=== PATIENT | female | born 1950 | race Caucasian/White ===

== ENCOUNTER → 2023-11-11 | Outpatient (CLI) | payer MEDICARE, SELFPAY ==
--- NOTE | 2023-11-11 07:49 | CT_ITS ---
STUDY: CT ABDOMEN WITHOUT CONTRAST REASON FOR EXAM: Female, 73 years old. Epigastric hernia. Prior hernia repair. RADIATION DOSAGE (If Supplied By Facility): CTDIvol = ( 15.95 ) mGy, DLP = ( 497.88 ) mGycm TECHNIQUE: Transaxial images were obtained without intravenous contrast, and oral contrast. Sagittal and coronal images were reconstructed. Individualized dose optimization techniques were used for this CT. COMPARISON: None. FINDINGS: There is a 7.6 mm densely calcified nodule in the right breast in keeping with a calcified fibroadenoma. The visualized lung bases are unremarkable. Coronary artery calcification. Normal liver. The gallbladder is contracted. Normal spleen. Normal pancreas. Normal bilateral adrenal glands. Normal right kidney. Normal left kidney. There is a small hiatal hernia. Normal small intestine. Normal colon. There is non-visualization of the appendix. There is diffuse atherosclerotic calcification of the abdominal aorta and its major visceral branches, without a demonstrated aneurysm. Normal inferior vena cava. Normal retroperitoneum. There is a small upper anterior abdominal wall hernia containing fat. The neck of the hernia sac measures 1.5 cm. There are diffuse degenerative changes of the visualized lumbar spine. CT/Abdomen without IV Contrast IMPRESSION: Small upper anterior abdominal wall hernia containing fat. The neck of the hernia measures 1.5 cm. Status post cholecystectomy. Electronically Signed: Jason Walker MD at 10:54 EDT ,
== END | disposition home or self-care (01) ==
LOC: CT 07:48
PROVIDERS: PCP Family Medicine; Referring Provider Surgery; Visit Provider Surgery
DX: K43.9 Ventral hernia without obstruction or gangrene (principal)
CPT/HCPCS: 74150

== ENCOUNTER 2023-12-14 08:54 | Day surgery (SDC) | payer MEDICARE, SELFPAY ==
--- NOTE | 2023-12-01 10:40 | EKG12_ITS ---
Test Reason : PRE OP Blood Pressure : / mmHG Vent. Rate : 070 BPM Atrial Rate : 070 BPM P-R Int : 188 ms QRS Dur : 090 ms QT Int : 408 ms P-R-T Axes : 084 -04 -01 degrees QTc Int : 440 ms Normal sinus rhythm Nonspecific ST abnormality Abnormal ECG Confirmed by Javed Rudd ([id number]), school photograph editor YOANA DANG ([id number]) on 12/02/2023 5:48:01 AM Referred By: Gina Almonte Confirmed By:Javed Rudd
[2023-12-01 11:27] LABS: Partial Thromboplast Time 29.9 Seconds (24.1-36.2)
[2023-12-14] VITALS (8 sets, daily range): BP systolic 149–171; BP diastolic 60–79; PULSE 81–100; RESP 16–18; TEMP 36.4–36.5; O2SAT 92–98; BMI 31.1
--- NOTE | 2023-12-14 09:03 | HP.PCM_ITS ---
History and Physical Date of Admission: 12/14/23 Date of Service: 11/25/23 MR#: [id number] Acct: [id number] Name: GEETHA MARTINEZ Rep #: [id number] : 1950 Provider: Dr. Gina Almonte MD Age/Sex: 73/F Location: [facility] Status: Signed with Addenda Signed Intake Vital Signs 10/27/2407:52 11/24/2412:03 11/24/2412:25 Height 5 ft 6 in 5 ft 6 in Weight: 193 lb 8 oz 193 lb BMI 31.2 31.1 BP 159/83 H 179/80 H 166/78 H Blood Pressure Location Rt brachial Rt brachial Lt brachial Position Sitting Sitting Sitting Respiration 18 18 Pulse 70 75 Pulse Source Monitor Monitor Temp 97.6 F L 97.3 F L Temp Source Temporal Temporal Pulse Oximetry (%) 96 100 Oxygen Delivery Method room air room air Intake Visit Reasons: DISCUSS HERNIA SURGERY Chief Complaint: ventral hernia surgery Is patient in pain?: No Allergies cetirizine Allergy (Verified 11/25/23 13:04) Rash Medications amlodipine 5 mg tablet mg PO 10/27/23 [History Confirmed 11/25/23] carbamazepine 200 mg tablet mg PO 10/27/23 [History Confirmed 11/25/23] ipratropium bromide 21 mcg (0.03 %) nasal spray intranasal 10/27/23 [History Confirmed 11/25/23] levetiracetam 500 mg tablet mg PO 10/27/23 [History Confirmed 11/25/23] omeprazole 40 mg capsule,delayed release mg PO 10/27/23 [History Confirmed 11/25/23] simvastatin 40 mg tablet mg PO 10/27/23 [History Confirmed 11/25/23] sucralfate 1 gram tablet PO 10/27/23 [History Confirmed 11/25/23] [facility] Medical History Fibroid tumor Surgical History History of appendectomy History of right shoulder replacement History of tonsillectomy Hx of cholecystectomy Status post right hip replacement Family History Aunt Breast cancerMother Diabetes Social History Smoking Status: Never smoker alcohol intake: never substance use type: does not use HPI HPI HPI: 73-year-old female presents to discuss CAT scan results. CAT scan did show an epigastric hernia that previous incision site. Patient still denies any pain at the site just notices a bulge. Patient is interested in having this hernia repa ired. ROS General General: No weight change, appetite, fatigue, colon cancer, breast cancer or weakness HEENT HEENT: No difficulty swallowing, eye injury, eye surgery, swollen glands or hoarseness Endo Endocrine: No thyroid disease, diabetes mellitus, thyroid cancer, Hair loss, heat intolerance or cold intolerance Skin Skin: No rash or changing moles Musc Musculoskeletal: No back problems, arthritis, rheumatoid arthritis, gout or joint pain Cardio Cardiovascular: No murmur, pacemaker, heart disease, atrial fibrillation, high blood pressure, heart attack, heart stent, palpitations, shortness of breat with exertion or chest pain Psych Psychiatric: No depression, anxiety or hearing voices Resp Respiratory: No shortness of breath, No sleep apnea, No cough, No COPD, No asthma, No emphysema and No wheezing Gastro Gastrointestinal: No abdominal pain, No nausea or vomiting, No diarrhea, No constipation, No blood in stool, Yes acid reflux, No hemorrhoids, No ulcers, No gallbladder problem and No black,tarry stools Ash Hematologic: No blood thinners, No blood disorders, No bleeding, No anemia and No blood clots Neuro Neurologic: No numbness, No tingling and No weakness Exam Const General: cooperative, healthy appearing, comfortable and no acute distress [facility] Head: normocephalic and atraumatic Neck Neck: supple Resp Effort & Inspection: normal respiratory effort Cardio Rate: regular rate GI Inspection: non-distended Palpation: soft, hernia (Epigastric/incisional/incarcerated about 3 cm of tissue felt on exam, nonte) and nontender Skin General: no rashes or lesions noted Neuro General: CN's II-XI intact bilaterally Extrem General: normal to inspection Psych Mental Status: mental status grossly normal Attitude: cooperative Assessment and Plan Assessment and Plan (1) Incisional hernia, incarcerated: Status: Acute Plan Plan to do open incarcerated incisional hernia repair with mesh. Reviewed the procedure with the patient including the risks, including but not limited to infection, bleeding, injury to other organs (i.e. small bowel, colon), and recurrence. All questions were answered. Gina Almonte M.D. Pager: [phone] [facility] [address] [place] [address] [address] [place] [address] Office: [phone] Coding Level of Care Code Off vis,est,level 3 Diagnoses Incisional hernia, incarcerated K43.0 11/26/23 1259 <Electronically signed by Gina Almonte MD> Date Gina Almonte MD
[2023-12-14] MEDS: Lactated Ringers 1,000 ML 15 ML IV (09:24)
[2023-12-14] MEDS: Clindamycin 900 MG/50 ML BAG 75 MG IV (10:25)
[2023-12-14] MEDS: Bupivacaine Mpf 0.5% 30 ML VIAL (11:01)
--- NOTE | 2023-12-14 11:02 | PCM.OPRPT ---
Report of Operation Date of Procedure: 12/14/23 Pre-Operative Diagnosis: Incarcerated incisional hernia Post-Operative Diagnosis: Same Surgery/Procedure Performed:: Open incarcerated incisional hernia repair with mesh Surgeon: Gina Almonte sole conforming machine operator: Erika Alberts Type of Anesthesia: General/Supplemental Anesthesiologist: Jesse Tavera Special Medications: Clindamycin 900 mg IV x 1 Specimen's removed: None Estimated Blood Loss (mL): < 10 cc Description of Procedure: Patient was brought into the room placed supine on the operating table. Correct patient, procedure, site, positioning, special, was verified prior to procedure. General anesthesia was induced. The abdomen was prepped draped in usual sterile fashion. A vertical midline incision was made with a 15 blade scalpel overlying the incisional hernia.. This was deepened with electrocautery. The fascia around the hernia defect was cleared and abdominal contents reduced. The hernia defect measured 1.2 cm x 1.[address] hernia patch 4.3 cm was selected. This was secured superior/inferiorly at its tails with 0 Prolene horizontal mattress suture. The hernia defect was closed with a [id number] 0 Prolene. The wound was irrigated with saline. Hemostasis was assured. The incision was closed with 3-0 Vicryl subdermal interrupted sutures and the skin was closed with interrupted 4-0 Monocryl sutures. Steri-Strips and OpSite were placed over the incision. Patient was extubated. Patient tolerated procedure well and was taken to the postanesthesia care unit in stable condition. Grafts/Implants Used: Ventralex ST hernia patch 4.3 cm LOT [id number] [id number] Complications none
--- NOTE | 2023-12-14 11:06 | DCINST_ITS ---
Discharge Instructions Diet Discharge Diet: Light diet - advance as tolerated Activity Discharge Activity: May Not Drive (while taking narcotic pain medications.) May shower in (days): 1 Lifting Restrictions: no lifting >20 lbs x 2 wks, no strenuous exercise for 4 wks Dressing / Incision Call your doctor if your incision/area has: Continuous Slow Oozing, Sudden Increased Bleeding, Increased Pain/ Swelling, Increased Redness, Foul Smelling Discharge and Swelling at the incision site Call your doctor if you observe: Fever of 101 or Higher Remove Dressing in: 2 days Cleanse incision/area with: Soap & Water Additional Dressing/Incision Instructions:: Steri-Strips will fall off in 7 to 10 days, if they do not fall off okay to remove after 10 days. Follow Up Care Please Follow Up With: Gina Almonte MD When: Call the office for a follow-up appointment 2 weeks; after 5 PM and on the weekends call [phone] with any concerns. Test Results: Test results from this visit will be discussed in further detail at your follow- up appointment, if applicable. Discharge Plan Admission Attending Provider: Gina Almonte Primary Care Provider: Jeff Horta Discharge Orders/Prescriptions Prescriptions: New tramadol 50 mg tablet 50 mg PO Q6H PRN (Reason: pain) 3 Days Qty: 10 0RF Continued omeprazole 40 mg capsule,delayed release(DR/EC) 40 mg PO DAILY PRN PRN (Reason: indigestion) amlodipine 5 mg tablet 5 mg PO DAILY Patient Comments: TAKE 1 TABLET BY MOUTH EVERY DAY carbamazepine 200 mg tablet 200 mg PO DAILY Patient Comments: TAKE 1 TABLET BY MOUTH EVERY DAY ipratropium bromide 21 mcg (0.03 %) spray,non-aerosol 2 spray intranasal BID PRN PRN (Reason: allergy symptoms) Patient Comments: SPRAY 2 SPRAYS INTO INTO EACH NOSTRIL TWICE A DAY NEEDED simvastatin 40 mg tablet 40 mg PO QHS Patient Comments: TAKE 1 TABLET BY MOUTH EVERY DAY levetiracetam 500 mg tablet 1,000 mg PO DAILY Patient Comments: TAKE 2 TABLETS BY MOUTH EVERY DAY omeprazole 20 mg capsule,delayed release(DR/EC) 20 mg PO DAILY Referrals / Follow Up: Jeff Horta DO [Primary Care Provider] - Disposition Disposition (needs filled in before D/C Order can be placed): Home, Self Care
== END 2023-12-14 12:51 | disposition home or self-care (01) ==
LOC: SDC 08:56 → AC 08:57
PROVIDERS: Anesthesiology; PCP Family Medicine; Referring Provider Surgery; Visit Provider Surgery
PROC: (CPT 49592; principal; 2023-12-14 10:15)
DX: K43.0 Incisional hernia with obstruction, without gangrene (principal); I10 Essential (primary) hypertension; K21.9 Gastro-esophageal reflux disease without esophagitis; E78.00 Pure hypercholesterolemia, unspecified; Z79.899 Other long term (current) drug therapy
CPT/HCPCS: 49592; 00832; 36415; 85730; 93005; J7120; C1781; J2405

== ENCOUNTER → 2024-02-09 | Outpatient (CLI) | payer MEDICARE, SELFPAY ==
--- NOTE | 2024-02-09 12:34 | RAD_ITS ---
STUDY: X-RAY - RIGHT ANKLE REASON FOR EXAM: Female, 73 years old. Pain. TECHNIQUE: 3 view(s) of the ankle. COMPARISON: None. FINDINGS: Mild osteopenia. Superior calcaneal spur. Mild arthrosis of the tibiotalar joint. Mild arthrosis of the subtalar joint. Mild arthrosis of the midfoot. Mild diffuse soft tissue swelling. RAD/Ankle min 3 Views IMPRESSION: Osteopenia, osteoarthritic changes, superior calcaneal spur and diffuse soft tissue swelling. No acute osseous abnormality. Electronically Signed: Justen Byrnes MD at 13:39 EDT ,
--- NOTE | 2024-02-09 12:36 | RAD_ITS ---
STUDY: X-RAY - RIGHT FOOT CLINICAL: Female, 73 years old. Pain. TECHNIQUE: 3 view(s) of the foot. COMPARISON: None. FINDINGS: Osteopenia. Mild arthrosis of the tibiotalar and subtalar joints. Mild arthrosis of the midfoot. Mild arthrosis of the TMT joints. Marked arthrosis of the first MTP joint with osteophytes and subchondral cyst formation. Moderate arthrosis of the IP joint of the first toe and the MTP and IP joints of the second through fifth toes with hammertoe deformities. Vascular calcification. RAD/Foot min 3 Views IMPRESSION: Osteopenia with osteoarthritic changes most marked at the first MTP joint. Hammertoe deformities. No acute osseous abnormality. Electronically Signed: Justen Byrnes MD at 13:38 EDT ,
== END | disposition home or self-care (01) ==
LOC: MTRAD 12:33
PROVIDERS: PCP Family Medicine; Referring Provider Family Medicine; Visit Provider Family Medicine
DX: M25.571 Pain in right ankle and joints of right foot (principal); M79.671 Pain in right foot
CPT/HCPCS: 73610; 73630

== ENCOUNTER → 2024-02-29 | Outpatient (CLI) | payer MEDICARE, SELFPAY ==
[2024-02-29 17:51] LABS: Absolute Neutrophil Count 3.3 X10^3/uL (2.0-7.7); Basophil# 0.03 X10^3/uL; Basophil% 0.5 % (0-1); Eosinophil# 0.26 X10^3/uL; Hematocrit 38.7 % (37-47); Hemoglobin 12.3 g/dL (12.0-15.0); Lymphocyte % 36.9 % (19-41); Mean Corp Hgb Conc 31.8 g/dL (32-36); Mean Corpuscular Hgb 30.2 pg (27.0-32.0); Mean Corpuscular Volume 95.1 fL (81-99); Mean Platelet Vol. 10.7 fl (6.2-12.0); Monocyte# 0.54 X10^3/uL; Monocyte% 8.3 % (0-10); NRBC Flagged by Analyzer 0 % (0-5); Neutrophil # 3.25 X10^3/uL (2.7-7.7); Neutrophil % 49.8 % (47-70); Platelet Count 212 K/mm3 (150-450); RBC Distribution Width CV 13.3 % (11.6-14.6); RBC Distribution Width SD 46.6 fl (35.1-43.9); Red Blood Count 4.07 M/mm3 (4.2-5.4); White Blood Count 6.5 K/mm3 (4.4-11.0)
[2024-02-29 18:42] LABS: ALB/GLOB Ratio 0.9 RATIO (0.9-2.4); AST(SGOT) 14 U/L (15-37); Alanine Aminotransfer ALT/SGPT 16 U/L (13-56); Albumin, Serum 3.3 g/dL (3.2-5.0); Alkaline Phosphatase 95 U/L (45-117); Anion Gap 6 (5-15); BUN 17 mg/dL (7-18); BUN/Creat Ratio 21.5 RATIO (10-20); Chloride 105 mmol/L (98-107); Cholesterol 172 mg/dL (200); Creatinine, Serum 0.79 mg/dL (0.55-1.02); EST Glomerular Filtration Rate 75 mL/min (>60); Est Glom Filt Rate - Afr Amer 91 mL/min (>60); Globulin 3.7 g/dL (2.2-4.2); Glucose 100 mg/dL (74-106); High Density Lipoprotein 59 mg/dL; Potassium 4.4 mmol/L (3.5-5.1); Sodium Level 138 mmol/L (136-145); Thyroid Stim Hormone (TSH) 0.45 uIU/mL (0.358-3.74); Triglycerides 272 mg/dL; Uric Acid 4.5 mg/dL (2.6-6.0); Very Low Density Lipoprotein 54 mg/dL (5-40)
[2024-02-29 18:50] LABS: Hepatitis C Antibody Non-Reactive (Nonreactive); Vitamin B12 190 pg/mL (211-911); Vitamin D,25 Hydroxy 21.9 ng/mL
[2024-03-01 11:27] LABS: Rheumatoid Factor < 10.0 IU/mL (<15)
== END | disposition home or self-care (01) ==
LOC: BFHLAB 15:53
PROVIDERS: PCP Family Medicine; Referring Provider Family Medicine; Visit Provider Family Medicine
DX: I10 Essential (primary) hypertension (principal); E78.5 Hyperlipidemia, unspecified; M25.571 Pain in right ankle and joints of right foot; Z51.81 Encounter for therapeutic drug level monitoring; M13.0 Polyarthritis, unspecified; R53.83 Other fatigue; E61.0 Copper deficiency; M85.80 Other specified disorders of bone density and structure, unspecified site; E55.9 Vitamin D deficiency, unspecified
CPT/HCPCS: 36415; 80053; 80061; 82306; 82607; 84443; 84550; 85025; 86140; 86431; 86803

== ENCOUNTER → 2025-03-02 | Outpatient (CLI) | payer MEDICARE, SELFPAY ==
[2025-03-02 17:40] LABS: Hematocrit 40.1 % (37-47); Hemoglobin 13.2 g/dL (12.0-15.0); Immature Granulocytes Count 0.030 X10^3/uL (0.0-0.0); Mean Corp Hgb Conc 32.9 g/dL (32-36); Mean Corpuscular Volume 93.9 fL (81-99); Mean Platelet Vol. 10.7 fl (6.2-12.0); NRBC Flagged by Analyzer 0 % (0-5); Platelet Count 249 K/mm3 (150-450); RBC Distribution Width CV 13.1 % (11.6-14.6); RBC Distribution Width SD 45.0 fl (35.1-43.9); Red Blood Count 4.27 M/mm3 (4.2-5.4); White Blood Count 7.8 K/mm3 (4.4-11.0)
[2025-03-02 18:30] LABS: AST(SGOT) 17 U/L (<=31); Alanine Aminotransfer ALT/SGPT 10 U/L (<=34); Albumin, Serum 4.0 g/dL (3.4-4.8); Alkaline Phosphatase 113 U/L (35-104); Anion Gap 13 (5-15); BUN 18 mg/dL (4-19); BUN/Creat Ratio 25.4 RATIO (10-20); Calcium,Total 9.3 mg/dL (7.6-11.0); Carbon Dioxide 22.5 mmol/L (21.0-32.0); Chloride 103 mmol/L (98-108); Cholesterol 178 mg/dL (<=200); Globulin 3.1 g/dL (2.2-4.2); Glucose 79 mg/dL (70-99); Low Density Lipoprotein Calc. 71 mg/dL; Potassium 4.1 mmol/L (3.3-5.1); Triglycerides 262 mg/dL; Very Low Density Lipoprotein 52 mg/dL (5-40); cholesterol:hdl ratio screen 3.27
[2025-03-02 18:37] LABS: Ferritin 34 ng/mL (22-378); Vitamin B12 329 pg/mL (180-914); Vitamin D,25 Hydroxy 30.3 ng/mL (30-100)
== END | disposition home or self-care (01) ==
LOC: BFHLAB 14:01
PROVIDERS: PCP Family Medicine; Visit Provider Family Medicine
DX: I10 Essential (primary) hypertension (principal); E78.5 Hyperlipidemia, unspecified; G25.81 Restless legs syndrome; E55.9 Vitamin D deficiency, unspecified; E53.8 Deficiency of other specified B group vitamins; D64.9 Anemia, unspecified
CPT/HCPCS: 36415; 80053; 80061; 82306; 82607; 82728; 85025